=== PATIENT | male | born 1985 | race Caucasian/White ===

== ENCOUNTER 2025-07-29 10:48 | Outpatient (CLI) | payer MEDICAID ==
--- NOTE | 2025-07-29 13:16 | RADIOLOGY REPORT ---
CT Chest without intravenous contrast INDICATION: OTHER NONSPECIFIC ABNORMAL FINDING OF LUNG FIELD TECHNIQUE: Multidetector spiral CT of the chest was performed from the lung apices to the upper abdomen. Axial, coronal and sagittal multiplanar reformats were performed. Radiation Dose : 1. Chest: CTDI volume is 15.8 mGy. Dose-length product is 533.7 mGy*cm The dose indicators for CT are the volume Computed Tomography (CT) Dose Index (CTDIvol) and the Dose Length Product (DLP), and are measured in units of mGy and mGy-cm, respectively. These indicators are not patient dose, but values generated from the CT scanner acquisition factors. The report includes radiation exposure data for exposures received during this examination. Comparison: None Findings: Lower neck: Normal thyroid. Lungs: Diffuse increased interstitial prominence, diffuse tree-in-bud nodularity and suggestion of multiple small cavitary lesions. 1.3 cm nodular opacity in the left upper lobe, image 50. Heart/Vascular Structures: Normal heart size. No pericardial effusion. Lymph Nodes: No adenopathy Pleura: No pleural effusion or significant pneumothorax. Musculoskeletal: No acute osseous abnormality. Soft tissues: Normal. Upper abdomen: Few hepatic cysts. IMPRESSION: Diffuse increased interstitial prominence, diffuse tree-in-bud nodularity and suggestion of multiple small cavitary lesions. 1.3 cm nodular opacity in the left upper lobe. Differential considerations could include atypical infection. Radiation optimization: All CT scans at this facility use at least one of these dose optimization techniques: automated exposure control mA and/or kV adjustment per patient size (includes targeted exams where dose is matched to clinical indication) or iterative reconstruction.
== END 2025-07-29 23:59 | disposition home or self-care (01) ==
LOC: RAD 10:48
DX: R91.8 Other nonspecific abnormal finding of lung field (principal); J84.9 Interstitial pulmonary disease, unspecified
CPT/HCPCS: 71250